=== PATIENT | male | born 1950 | race Caucasian/White ===

== ENCOUNTER 2020-01-24 00:12 | Outpatient (CLI) | payer SELFPAY | END 2020-01-24 23:59 | disposition home or self-care (01) | LOC: HW VAS 00:12 | DX: Z13.6 Encounter for screening for cardiovascular disorders (principal); I10 Essential (primary) hypertension; I25.2 Old myocardial infarction; Z87.891 Personal history of nicotine dependence ==

== ENCOUNTER 2022-08-05 06:04 | Day surgery (SDC) | payer MEDICARE, BC ==
[2022-08-05] VITALS (14 sets, daily range): BP systolic 105–168; BP diastolic 77–105
[~2022-08-05] VITALS: Ht 180.3 cm; Wt 86.2 kg
[~2022-08-05 06:04] MED LIST: ALPR0.5T9 PO; CARV3.122 PO; DOCUMENT DATE & TIME OF BETA-BLOCKER PO ONE; FLO0.4C PO; GABA800T11 PO; ROSU20TA31 PO; TRAZ-251 PO; famotidine 20mg tablet PO ONE; ringers solution, lacted 1,000 ML IV SCH; tranexamic acid inj. 1,000 MG in normal saline IV soln 100ML IV ONE
[2022-08-05] MEDS ORDERED: cocaine 4% topical solution 4ml bottle ONE (06:49)
[2022-08-05] MEDS ORDERED: LIDOCAINE 1%/EPI 1:100,000 inj. 10 ML multi-dose vial ONE (06:49)
[2022-08-05] MEDS ORDERED: oxymetazoline 15 ML nasal spray NS ONE ×2 (06:50→08:46)
[2022-08-05] MEDS ORDERED: mupirocin 2% ointment 22GM ONE (06:50)
[2022-08-05] MEDS ORDERED: FENTANYL CITRATE/PF 50 MCG/1 ML VIAL ONE (08:06)
[2022-08-05] MEDS ORDERED: rocuronium 10mg/ml inj IV ONE (08:07)
[2022-08-05] MEDS ORDERED: propofol inj 20 ML IV ONE (08:07)
[2022-08-05] MEDS ORDERED: midazolam 1 mg/ML 2ml injection ONE (08:07)
[2022-08-05] MEDS ORDERED: sevoflurane 250ml liquid IH ONE (08:09)
[2022-08-05] MEDS ORDERED: cocaine 4% topical solution 4ml bottle TP ONE (08:45)
[2022-08-05] MEDS ORDERED: LIDOcaine 1% W/epiNEPHrine 1:100,000 20ml vial IJ ONE (08:47)
[2022-08-05] MEDS ORDERED: mupirocin 2% ointment 22GM TP ONE (08:49)
[2022-08-05] MEDS ORDERED: labetalol 20mg/4ml (5mg/ml) syringe IV PRN (09:05)
[2022-08-05] MEDS ORDERED: proCHLORperazine 10 MG/2 ml inj IV PRN (09:05)
[2022-08-05] MEDS ORDERED: meperidine/PF 25mg/ml syringe IV PRN ×3 (09:05)
[2022-08-05] MEDS ORDERED: ondansetron/PF 4mg/2ml inj IV PRN (09:05)
[2022-08-05] MEDS ORDERED: morphine 2 MG/ML inj. syringe IV PRN (09:05)
[2022-08-05] MEDS ORDERED: ringers solution, lacted 1,000 ML IV SCH (09:05)
[2022-08-05] MEDS ORDERED: tranexamic acid inj. 1,000 MG in normal saline IV soln 100ML IV ONE (09:45)
[2022-08-05] MEDS ORDERED: glycopyrrolate 0.2mg/ml inj ONE (09:47)
[2022-08-05] MEDS ORDERED: dexamethasone sod phosphate 4mg/ml inj. ONE (09:47)
[2022-08-05] MEDS ORDERED: ondansetron/PF 4mg/2ml inj ONE (09:47)
[2022-08-05] MEDS ORDERED: sugammadex 200mg/2ml injection IV ONE (09:48)
--- NOTE | 2022-08-05 10:12 | NUR ---
Received from OR via [facility], accompanied by Anesthesiologist DR. FERGUSON and report given by Anesthesiolgist AND OR NURSE. PT ARRIVED DROWSY BUT TALKING ON 10L OF VIA MASK. PT HAD UVULECTOMY AND SEPTOPLASTY. NO DRESSING NOTED. NO BLEEDING OR SWELLING NOTED. PT DENIES PAIN OR NAUSEA. STATES NOSE IS TINGLY. 20 G IV TO RIGHT ARM. PER ANESTHESIA, PT IS ON BETA [place] AND BASELINE HR IS LOW IN THE 40'S TO 50'S. WILL CONTINUE TO MONITOR AND D/C HOME WHEN CRITERIA IS MET. Addendum: 08/05/22 at 1032 by Katiuska Mota RN Amended: Links added. Addendum: 08/05/22 at 1047 by Katiuska Mota RN GAUZE NOTED FAR UP IN BILATERAL NOSTRILS.
[2022-08-05] MEDS: morphine 4 MG/ML inj SYRINge IV PRN ×3 (11:00→11:30)
--- NOTE | 2022-08-05 11:02 | NUR ---
CALLED DR. DUGAN FOR BP OVER 150 PER SURGEON ORDERS. VERIFIED ORDERS TO ADMINISTER NASAL SALINE SPRAY AND NASAL LAVAGE AND HE SAID TO FOLLOW ORDERS PERTAINING TO BOTH. NOSTRIL DRESSINGS THAT ARE IN PLACE WILL DISSOLVE ON THEIR OWN. PT EDUCATED. WILL CONTINUE TO MONITOR AND MEDICATE FOR PAIN.
[2022-08-05] MEDS ORDERED: mupirocin 2% nasal ointment 1gm UD NS SCH (11:11)
[2022-08-05] MEDS ORDERED: salt irrigation nasal spray 45 ML SPRAY NS PRN ×3 (11:15→12:00)
[2022-08-05] MEDS ORDERED: salt irrigation nasal spray 45 ML SPRAY NS SCH (12:00)
--- NOTE | 2022-08-05 12:02 | NUR ---
ALL DISCHARGE CRITERIA HAS BEEN MET. VSS, DR. DUGAN AWARE OF BP, PAIN AT A TOLERABLE LEVEL AND PT INSTRUCTED TO FOLLOW MEDICATION INSTRUCTIONS WHEN HE GETS HOME, VOIDING AND ABLE TO SAFELY AMBULATE AND TRANSFER SELF. IV TAKEN OUT WITHOUT ANY COMPLICATIONS. NO BLEEDING NOTED. ALL DISCHARGE INSTRUCTIONS COVERED WITH PATIENT AND ALL QUESTIONS ANSWERED. PATIENT TAKEN OUT VIA WHEELCHAIR TO PERSONAL VEHICLE WHERE FAMILY/FRIEND DROVE PATIENT HOME. Addendum: 08/05/22 at 1231 by Katiuska Mota RN Amended: Links added.
== END 2022-08-05 12:02 | disposition home or self-care (01) ==
LOC: PAS 06:04
PROVIDERS: ATTEND Otolaryngology
DX: J34.2 Deviated nasal septum (principal); J32.9 Chronic sinusitis, unspecified; J34.3 Hypertrophy of nasal turbinates; M19.90 Unspecified osteoarthritis, unspecified site; K13.79 Other lesions of oral mucosa; J33.8 Other polyp of sinus; Z79.899 Other long term (current) drug therapy; Z20.822 Contact with and (suspected) exposure to COVID-19; Z87.891 Personal history of nicotine dependence; Z98.890 Other specified postprocedural states
CPT/HCPCS: 30140; 30520; 31254; 31267; 36415; 42140; 61782; 82948; 87635; A6402; C9250; C9803; J1100; J2175; J2250; J2270; J2405; J2704; J3010; J3490; J7030; J7050; J7120; U0003; Z7506; Z7508; Z7512; A4618; A6449; A7000

== ENCOUNTER 2022-09-16 05:58 | Day surgery (SDC) | payer MEDICARE, BC ==
[~2022-09-16] VITALS: Ht 180.3 cm; Wt 88.1 kg
[2022-09-16] VITALS (13 sets, daily range): BP systolic 119–173; BP diastolic 82–106
[~2022-09-16 05:58] MED LIST changes: -ALPR0.5T9 PO; +oxymetazoline 15 ML nasal spray NS ONE
[2022-09-16] MEDS ORDERED: LIDOcaine 1% 30ml preserv. free vial ONE (06:44)
[2022-09-16] MEDS ORDERED: epiNEPHrine 1 mg/ml inj ONE (06:44)
[2022-09-16] MEDS ORDERED: oxymetazoline 15 ML nasal spray NS ONE ×3 (06:46→09:28)
[2022-09-16] MEDS ORDERED: mupirocin 2% ointment 22GM ONE (06:46)
[2022-09-16] MEDS ORDERED: cocaine 4% topical solution 4ml bottle ONE (06:46)
[2022-09-16] MEDS ORDERED: oxymetazoline 15 ML nasal spray NS PRN (07:50)
[2022-09-16] MEDS ORDERED: tranexamic acid 100mg/ml inj. ONE ×2 (07:57→08:44)
[2022-09-16] MEDS ORDERED: midazolam 1 mg/ML 2ml injection ONE ×2 (07:58→20:03)
[2022-09-16] MEDS ORDERED: propofol inj 20 ML IV ONE ×2 (07:59→20:04)
[2022-09-16] MEDS ORDERED: ondansetron/PF 4mg/2ml inj ONE ×3 (07:59→21:06)
[2022-09-16] MEDS ORDERED: dexamethasone sod phosphate 4mg/ml inj. ONE (07:59)
[2022-09-16] MEDS ORDERED: LIDOcaine 1%/PF 5ML 10 MG/ML VIAL ONE ×2 (08:00→20:04)
[2022-09-16] MEDS ORDERED: ringers solution, lacted 1,000 ML IV SCH (08:05)
[2022-09-16] MEDS ORDERED: hydrALAZINE 20mg/ml inj. IV PRN (08:05)
[2022-09-16] MEDS ORDERED: morphine 2 MG/ML inj. syringe IV PRN (08:05)
[2022-09-16] MEDS ORDERED: fentaNYL/PF 50MCG/1 ML 2ML syringe IV PRN (08:05)
[2022-09-16] MEDS ORDERED: ondansetron/PF 4mg/2ml inj IV PRN (08:05)
[2022-09-16] MEDS ORDERED: sevoflurane 250ml liquid IH ONE (08:08)
[2022-09-16] MEDS ORDERED: triamcinolone acetonide 40mg/ml inj IM ONE (08:10)
[2022-09-16] MEDS ORDERED: triamcinolone acetonide 40mg/ml inj ONE (08:27)
[2022-09-16] MEDS ORDERED: ePHEDrine 50MG/ML INJ. ONE (08:53)
[2022-09-16] MEDS ORDERED: meperidine/PF 25mg/ml syringe ONE (08:54)
[2022-09-16] MEDS ORDERED: LIDOcaine 1% w/EPI 1:100,000 30ml vial (MDV) IJ ONE (09:23)
--- NOTE | 2022-09-16 10:17 | NUR ---
Received from OR via [facility] , accompanied by Anesthesiologist OSWALD and report given by Anesthesiolgist. ARRIVES AAOX4, ON SIMPLE MASK 99%, PACKING DRESSING TO NOSE CLEAN DRY AND INTACT. Addendum: 09/16/22 at 1019 by Tremaine Cerna RN Amended: Links added.
[2022-09-16] MEDS: labetalol 20mg/4ml (5mg/ml) syringe IV PRN ×3 (10:22→11:05)
[2022-09-16] MEDS: morphine 4 MG/ML inj SYRINge IV PRN ×2 (10:23→11:10)
[2022-09-16] MEDS: fentaNYL/PF 50MCG/1 ML 2ML syringe IV PRN ×2 (10:45→11:29)
[2022-09-16] MEDS ORDERED: salt irrigation nasal spray 45 ML SPRAY NS PRN (11:00)
--- NOTE | 2022-09-16 12:15 | NUR ---
UPDATED DR DUGAN ON ELEVATED BP THAT IS NOW UNDER <150, SLOW BLEEDING FROM NOSE, CONTROLLED WITH NON-IRRITATING THE NOSE. OK TO DC HOME PER DR DUGAN. Addendum: 09/16/22 at 1229 by Tremaine Cerna RN Amended: Links added.
--- NOTE | 2022-09-16 12:22 | NUR ---
PT DC'D HOME, STABLE PER IRMA FINLEY FOR DC, WITH WRITTEN AND VERBAL SPECIFIC INSTRUCTIONS. FOLLOW UP PLAN OF CARE EXPLAINED. PT VERBALIZED UNDERSTANDING. PT DC HOME WITH EXTRA SUPPLIES FOR NASAL SURGERY. IV REMOVED. VSS. DC'D INTO CARE OF SIGNIFICANT OTHER, POV WITHOUT INCIDENT. Addendum: 09/16/22 at 1251 by Tremaine Cerna RN Amended: Links added.
[2022-09-16] MEDS ORDERED: desflurane 240ml liquid inh. IH ONE (19:45)
[2022-09-16] MEDS ORDERED: dexamethasone sod phosphate 10mg/ml inj ONE (19:45)
[2022-09-16] MEDS ORDERED: neomy sulf/polymyxin B sulf. GU irrigation 1ml amp IR ONE (19:45)
[2022-09-16] MEDS ORDERED: sugammadex 200mg/2ml injection IV ONE (19:45)
[2022-09-16] MEDS ORDERED: rocuronium 10mg/ml inj IV ONE (19:45)
[2022-09-16] MEDS ORDERED: fentaNYL/PF 50MCG/1 ML 2ML syringe ONE (20:03)
[2022-09-16] MEDS ORDERED: albumin (Human) 5% 250ml 250 ML IV ONE (20:59)
== END 2022-09-16 12:22 | disposition home or self-care (01) ==
LOC: PAS 05:58
PROVIDERS: ATTEND Otolaryngology
DX: J32.8 Other chronic sinusitis (principal); J33.8 Other polyp of sinus; I10 Essential (primary) hypertension; G47.30 Sleep apnea, unspecified; I48.11 Longstanding persistent atrial fibrillation; N40.0 Benign prostatic hyperplasia without lower urinary tract symptoms; E78.5 Hyperlipidemia, unspecified; M19.90 Unspecified osteoarthritis, unspecified site; B19.20 Unspecified viral hepatitis C without hepatic coma; Z87.891 Personal history of nicotine dependence; Z20.822 Contact with and (suspected) exposure to COVID-19; Z98.890 Other specified postprocedural states; Z79.899 Other long term (current) drug therapy; Z88.8 Allergy status to other drugs, medicaments and biological substances
CPT/HCPCS: 31259; 31267; 31276; 36415; 61782; 82948; 87811; 93005; A6402; J0171; J0360; J1100; J2175; J2250; J2270; J2405; J2704; J3010; J3301; J3490; J7030; J7050; J7120; P9045; U0003; U0005; Z7506; Z7508; Z7512; A4618; A6449; A7000

== ENCOUNTER 2022-09-16 18:25 | Observation (INO) | payer MEDICARE, BC ==
[2022-09-16] VITALS (13 sets, daily range): BP systolic 128–165; BP diastolic 91–107
[~2022-09-16] VITALS: Ht 180.3 cm; Wt 86.4 kg
[~2022-09-16 18:25] MED LIST changes: -DOCUMENT DATE & TIME OF BETA-BLOCKER PO ONE; -famotidine 20mg tablet PO ONE; -oxymetazoline 15 ML nasal spray NS ONE; -ringers solution, lacted 1,000 ML IV SCH; -tranexamic acid inj. 1,000 MG in normal saline IV soln 100ML IV ONE
[2022-09-16] MEDS ORDERED: tranexamic acid inj. 1,000 MG in normal saline 100ml IV soln 90 ML IV ONE (18:50)
[2022-09-16] MEDS ORDERED: dextrose 5%-normal saline 1,000 ML IV ONE (19:00)
[2022-09-16 19:01] LABS: BASOPHILS % (AUTO) 0.1 % (0-1); EOSINOPHILS % (AUTO) 0 % (0-6); HEMATOCRIT 38.4 % (42.0-52.0); HEMOGLOBIN 12.7 g/dl (14.0-17.9); LYMPHOCYTES # (AUTO) 0.8 X10'3 (1.1-4.8); LYMPHOCYTES % (AUTO) 6.2 % (21-51); MEAN CORPUSCULAR HEMOGLOBIN 29.3 PG (27.0-31.0); MEAN CORPUSCULAR HGB CONC 32.9 g/dL (33.0-36.5); MEAN CORPUSCULAR VOLUME 89.1 FL (78-98); MEAN PLATELET VOLUME 7.9 FL (7.4-10.4); MONOCYTES # (AUTO) 0.5 X10'3 (0-0.9); MONOCYTES % (AUTO) 3.8 % (2-12); NEUTROPHILS # (AUTO) 12.2 X10'3 (1.8-7.7); NEUTROPHILS % (AUTO) 89.9 % (42-75); PLATELET COUNT 272 X10'3 (140-440); RED BLOOD COUNT 4.31 X10'6 (4.70-6.10); RED CELL DISTRIBUTION WIDTH 13.6 % (11.5-14.5); WHITE BLOOD COUNT 13.5 X10'3 (4.5-11.0)
[2022-09-16 19:14] LABS: APTT 25 SECONDS (22-32)
[2022-09-16 19:16] LABS: ALANINE AMINOTRANSFERASE 18 U/L (12-78); ALBUMIN 4.1 G/DL (3.4-5.0); ALBUMIN/GLOBULIN RATIO 1.1 (1.1-1.5); ALKALINE PHOSPHATASE 93 IU/L (46-116); ANION GAP 14 (8-16); ASPARTATE AMINO TRANSFERASE 21 U/L (10-37); BILIRUBIN,TOTAL 0.5 MG/DL (0.1-1.0); BLOOD UREA NITROGEN 17 MG/DL (7-18); CALCIUM 9.6 MG/DL (8.5-10.1); CHLORIDE 102 MMOL/L (99-107); GLUCOSE 172 MG/DL (70-104); POTASSIUM 4.3 MMOL/L (3.5-5.1); SODIUM 138 MMOL/L (135-145); TOTAL CARBON DIOXIDE 22.3 MMOL/L (24-32); TOTAL PROTEIN 7.7 G/DL (6.4-8.2); eGFR 73 ML/MIN
[2022-09-16] MEDS ORDERED: oxymetazoline 15 ML nasal spray NS ONE ×2 (19:55→20:21)
[2022-09-16] MEDS ORDERED: cocaine 4% topical solution 4ml bottle ONE (19:55)
[2022-09-16] MEDS ORDERED: mupirocin 2% ointment 22GM ONE (19:55)
[2022-09-16] MEDS ORDERED: cocaine 4% topical solution 4ml bottle TP ONE (20:21)
[2022-09-16] MEDS ORDERED: mupirocin 2% nasal ointment 1gm UD NS ONE (20:21)
[2022-09-16] MEDS ORDERED: morphine 4 MG/ML inj SYRINge IV PRN (20:45)
[2022-09-16] MEDS ORDERED: ringers solution, lacted 1,000 ML IV SCH (20:45)
[2022-09-16] MEDS ORDERED: meperidine/PF 25mg/ml syringe IV PRN ×3 (20:45)
[2022-09-16] MEDS ORDERED: proCHLORperazine 10 MG/2 ml inj IV PRN (20:45)
[2022-09-16] MEDS ORDERED: morphine 2 MG/ML inj. syringe IV PRN (20:45)
[2022-09-16] MEDS ORDERED: ondansetron/PF 4mg/2ml inj IV PRN (20:45)
[2022-09-16] MEDS ORDERED: sugammadex 200mg/2ml injection IV ONE (20:45)
[2022-09-16] MEDS ORDERED: ALPRAZolam 0.25mg tablet PO ONE (21:00)
[2022-09-16] MEDS ORDERED: Chloraseptic (Phenol) Spray 177ml MM PRN (21:15)
--- NOTE | 2022-09-16 22:43 | NUR ---
PATIENT TAKEN TO [facility] FLOOR ROOM 3012B, WITH ALL BELONGINGS AND HOOKED UP TO ALL MONITORS IN ROOM AND REPORT GIVEN TO RN WHO HAS TAKEN OVER PATIENT CARE. Addendum: 09/16/22 at 2252 by Christal Aguiar RN Amended: Links added.
[2022-09-17] MEDS ORDERED: dextrose 5%-normal saline 1,000 ML IV SCH (00:05)
[2022-09-17 00:15] VITALS: BP 146/91
[2022-09-17 00:45] VITALS: BP 144/90
[2022-09-17 01:15] VITALS: BP 144/93
[2022-09-17 02:15] VITALS: BP 146/92
[2022-09-17 03:15] VITALS: BP 149/101
--- NOTE | 2022-09-17 06:37 | NUR ---
Problems reprioritized. Patient report given, questions answered & plan of care reviewed with Judit HORTON.
[2022-09-17] MEDS ORDERED: ALPRAZolam 0.5mg tablet PO ONE (21:00)
== END 2022-09-17 09:57 | disposition home or self-care (01) ==
LOC: ER 18:26 → PCU 3S 09-17 00:31
PROVIDERS: ADMIT Otolaryngology; ATTEND Otolaryngology
DX: R04.0 Epistaxis (principal); N40.0 Benign prostatic hyperplasia without lower urinary tract symptoms; I10 Essential (primary) hypertension; I25.2 Old myocardial infarction; Z87.891 Personal history of nicotine dependence; Z79.899 Other long term (current) drug therapy
CPT/HCPCS: 31238; 36415; 80053; 85025; 85610; 85730; 86885; 86900; 86901; 96374; 96375; 99291; G0378; J2175; J2270; J2405; J3490; J7042; J7120; 88304; 88311; 99285; A4618; A6250; A6449; A7000